=== PATIENT | female | born 1985 | race Caucasian/White ===

== ENCOUNTER 2023-07-11 13:33 | Emergency (ER) | payer OTHER, SELFPAY ==
[2023-07-11 13:39] VITALS: BP 118/89
[2023-07-11 13:57] LABS: % Basophils 0.3 % (0-2); % Immature Granulocytes 0.3 % (0-0.5); % Lymphocytes 19.3 % (20.5-51.1); % Monocytes 7.8 % (1.7-9.3); % Neutrophils 70.3 % (42.2-75.2); Absolute Eosinophils 0.1 10^3/uL (0-0.7); Absolute Lymphocytes 1.1 10^3/uL (1.2-3.4); Absolute Monocytes 0.5 10^3/uL (0.1-0.6); Absolute Neutrophils 4.1 10^3/uL (1.4-6.5); Hematocrit 41.7 % (37.0-47.0); Hemoglobin 14.9 g/dL (12.0-16.0); Mean Corp Hgb Conc. 35.7 g/dL (33.0-37.0); Mean Corpuscular Hgb 31.1 pg (27.0-31.0); Mean Corpuscular Volume 87.1 fL (81.0-99.0); Mean Platelet Volume 8.5 fL (7.4-10.4); Nucleated Red Blood Cells % 0 %; Platelet Count 306 10^3/uL (130-400); Red Blood Cell Count 4.79 10^6/uL (4.20-5.40); Red Cell Dist. Width 12.4 % (11.5-14.5); White Blood Cell Count 5.9 10^3/uL (4.8-10.8)
[2023-07-11 14:10] LABS: Lactic Acid 0.7 mmol/L (0.7-2.0)
[2023-07-11 14:13] LABS: ALT (SGPT) 295 U/L (0-35); AST (SGOT) 210 U/L (14-36); Albumin 3.9 g/dl (3.5-5.0); Alkaline Phosphatase 122 U/L (38-126); Blood Urea Nitrogen 12 mg/dl (7-17); Calcium 9.1 mg/dl (8.4-10.2); Carbon Dioxide 22 mmol/L (22-30); Chloride 109 mmol/L (98-107); Glucose 86 mg/dl (70-99); Potassium 4.2 mmol/L (3.5-5.1); Sodium 138 mmol/L (135-145); Total Bilirubin 0.8 mg/dl (0.2-1.3); Total Protein 7.5 g/dl (6.3-8.2); eGFR > 60.00
[2023-07-11 14:20] LABS: HCG, Serum Qualitative Screen Negative; Monotest Negative (Negative)
--- NOTE | 2023-07-11 17:22 | ED.GENMED ---
History of Present Illness
<Mattie Casey PA-C - Last Filed: 07/11/23 21:54>
General
Chief Complaint: Throat Problem
Source: patient
Exam Limitations: none
Time Seen by Provider: 07/11/23 16:52
Nursing documentation reviewed up to this point in time: agreed with
Travel History
Have you had any contact with someone who has COVID-19?: No
Do you have any symptoms of coronavirus? Fever > 100 degrees, chills, cough, shortness of breath, sore throat, loss of taste or smell, muscle aches, or headache?: No
History of Present Illness
History of Present Illness:
Patient is a 38 year old female presenting to the emergency department for evaluation of throat pain. Patient reports symptoms started on Sunday night with fatigue, body aches, and a sore throat. Symptoms have persisted and throat pain has become
increasingly more severe on right side. She also endorses intermitted subjective fevers but has been taking Motrin [id number]. Throat pain has been gradually worsening and she endorses pain up into her right ear. She was seen by primary care
on Sunday�who performed a rapid strep test in office. Rapid strep test negative throat culture that send was negative as well. She was started on a course of Augmentin for suspected tonsillar cellulitis. She has now had 4 doses and endorses no
improvement. She spoke with her primary care who was unable to get her into ENT. She recommended evaluation emergency department to rule out abscess.
Past History
<Mattie Casey PA-C - Last Filed: 07/11/23 21:54>
Past History
ED Past Medical History: Hypothyroidism, Psychiatric (Anxiety, Depression) and Other (PCOS, Sleep apnea)
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
Social History
Tobacco: Non-smoker
Alcohol: Occasional
Drug: None
Personal: Single
Living: with family
Employment: Employed
Family History
Family History: Other (Noncontributory)
Phy Exam
<Mattie Casey PA-C - Last Filed: 07/11/23 21:54>
Physical Exam
Physical Exam:
General: In mild distress due to pain and non-toxic
Vitals: Vital signs stable, afebrile
HEENT: Atraumatic, normocephalic; pupils equal round reactive light bilaterally, extraocular muscles intact; TMs clear with visible landmarks bilaterally, erythema posterior pharynx with tonsillar edema bilaterally right greater than left with
exudates, no obvious abscess, uvula midline, airway patent
Neck: appears supple, no meningeal signs, lymphadenopathy
CV: Regular rate and rhythm, heart sounds normal, no evidence of cyanosis
Resp: No evidence of respiratory distress, lungs clear no accessory muscle use
Abd: Soft, nontender in all 4 quadrants, negative Reyes sign, no palpable hepatosplenomegaly
Extremities: No deformities, no evidence of cyanosis or edema
Neuro: alert and oriented to person place time, speech normal, no focal motor deficits, no new focal neurologic deficits
Psych: Normal affect
Skin: Intact, no rashes
Course
<Mattie Casey PA-C - Last Filed: 07/11/23 21:54>
Orders/Labs/Results
Orders:
Orders
07/11/23 13:42
Test Result ONCE
07/11/23 13:48
Complete Blood Count/With Diff Urgent
Comprehensive Metabolic Panel Urgent
HCG, Serum Qualitative Screen Urgent
Lactic Acid Q4H
Comment: ON ICE, CANCEL 2ND ORDER IF FIRST LACTIC ACID LEVEL <2
Monotest Urgent
Blood Culture Q30M
ARLET Source: Blood/Venous
Specimen Description:
Comment: FROM 2 SEPARATE SITES
07/11/23 17:37
CT Neck With Iv Contrast Urgent
Comment:
Reason For Exam: Right tonsillar edema, r/o abscess
07/11/23 18:13
Blood Culture Q30M
ARLET Source: Blood/Venous
Specimen Description:
Comment: FROM 2 SEPARATE SITES
07/11/23 18:20
Ibuprofen [Motrin] 400 mg PO NOW STA
Abnormal Lab Results
07/11/23
13:48
MCH 31.1 H pg
(27.0-31.0)
Absolute Lymphs (auto) 1.1 L 10^3/uL
(1.2-3.4)
Lymphocytes % 19.3 L %
(20.5-51.1)
Chloride 109 H mmol/L
(98-107)
AST 210 H U/L
(14-36)
ALT 295 H U/L
(0-35)
07/11/23 13:48
07/11/23 13:48
Vital Signs
Initial and Last Documented VS:
Initial Vital Signs
Temp Pulse Resp BP Pulse Ox
98.3 F 87 17 118/89 99
07/11/23 13:39 07/11/23 13:39 07/11/23 13:39 07/11/23 13:39 07/11/23 13:39
Last Documented Vital Signs
Temp Pulse Resp BP Pulse Ox
98.3 F 70 18 115/70 100
07/11/23 13:39 07/11/23 21:05 07/11/23 21:05 07/11/23 21:05 07/11/23 21:05
<Mary De La Torre MD - Last Filed: 07/11/23 17:43>
Orders/Labs/Results
Orders:
Orders
07/11/23 13:42
Test Result ONCE
07/11/23 13:48
Complete Blood Count/With Diff Urgent
Comprehensive Metabolic Panel Urgent
HCG, Serum Qualitative Screen Urgent
Lactic Acid Q4H
Comment: ON ICE, CANCEL 2ND ORDER IF FIRST LACTIC ACID LEVEL <2
Monotest Urgent
Blood Culture Q30M
ARLET Source: Blood/Venous
Specimen Description:
Comment: FROM 2 SEPARATE SITES
07/11/23 17:37
CT Neck With Iv Contrast Urgent
Comment:
Reason For Exam: Right tonsillar edema, r/o abscess
07/11/23 18:13
Blood Culture Q30M
ARLET Source: Blood/Venous
Specimen Description:
Comment: FROM 2 SEPARATE SITES
07/11/23 18:20
Ibuprofen [Motrin] 400 mg PO NOW STA
Abnormal Lab Results
07/11/23
13:48
MCH 31.1 H pg
(27.0-31.0)
Absolute Lymphs (auto) 1.1 L 10^3/uL
(1.2-3.4)
Lymphocytes % 19.3 L %
(20.5-51.1)
Chloride 109 H mmol/L
(98-107)
AST 210 H U/L
(14-36)
ALT 295 H U/L
(0-35)
07/11/23 13:48
07/11/23 13:48
Vital Signs
Initial and Last Documented VS:
Initial Vital Signs
Temp Pulse Resp BP Pulse Ox
98.3 F 87 17 118/89 99
07/11/23 13:39 07/11/23 13:39 07/11/23 13:39 07/11/23 13:39 07/11/23 13:39
Last Documented Vital Signs
Temp Pulse Resp BP Pulse Ox
98.3 F 70 18 115/70 100
07/11/23 13:39 07/11/23 21:05 07/11/23 21:05 07/11/23 21:05 07/11/23 21:05
<Mattie Casey PA-C - Last Filed: 07/11/23 21:54>
MDM/Problems Addressed
Differential Diagnosis Includes:
Viral pharyngitis, tonsillar cellulitis, peritonsillar abscess, group A strep pharyngitis, mononucleosis, Ian angina, mastoiditis
MDM/Problems Addressed:
Patient is a 38-year-old female presenting for evaluation of right throat pain associated with viral URI symptoms. Symptoms started on Sunday and progressively worsened. She was seen by PCP on Sunday where she had a negative rapid strep test and
negative throat culture. She was started on Augmentin for suspected tonsillar cellulitis. She has had 4 doses and symptoms have not improved�spoke to PCP recommended eval in ER for peritonsillar abscess. She denies rigors, chest pain, shortness
of breath. She is swallowing food and liquids without difficulty�does cause him pain. Patient is hemodynamic stable, afebrile on arrival. In mild distress due to pain. Physical exam as document above. She does have significant erythema and
edema of tonsils bilaterally right greater than left. There is presence of exudates but no obvious abscess, uvula is midline. Airway is patent. Benign abdomen exam.
CBC without any clinically significant abnormalities. CMP shows transaminitis�significantly increased since September 2022. test negative. Monoscreen negative.
Although no abscess identified on physical exam�will get CT of neck to ensure no abscess. Will reassess
CT shows asymmetric enlargement of right tonsil and tiny focal hypodensity localized swelling versus possible early abscess. Discussed with ENT. They will see her in office in the next few days.
Patient has remained stable emergency department, nontoxic-appearing with no signs of meningitis. She is safe for discharge with close return precautions, prompt ENT follow-up. Will send prednisone for 4 days. She should continue Augmentin as
prescribed by PCP.
Discussed with patient to have liver enzymes rechecked by PCP within the next month. Patient comfortable to plan. All questions answered
Chronic conditions affecting care:
N/A
Acute Exacerbation and/or Progression of Chronic Illness:
Acute tonsillitis
<Mattie Casey PA-C - Last Filed: 07/11/23 21:54>
*Radiology
Radiology exam reviewed: radiology read reviewed
*Pulse Oximetry
Patient hypoxic: no
*Package Maker Interpretation
Rate: Package Maker- N/A
*Critical Care Note
Total Time (30-74mins, 75-104mins- exclusive of procedures): Not Applicable
ED Attending Note
<Mattie Casey PA-C - Last Filed: 07/11/23 21:54>
-
Portions of this chart may have been created with voice recognition software.� Occasional wrong word or��sound alike� substitutions may have occurred due to the inherent limitations of voice recognition software.
<Mary De La Torre MD - Last Filed: 07/11/23 17:43>
ED Attending Note
Patient seen and examined by attending physician: Yes
I performed the substantive portion of visit, reviewed & personally made and approve the management plan that is documented in note by myself or MACKENZIE.: Yes
ED Attending Note:
Patient appears nontoxic and in there is no meningismus. Her tonsils are symmetric appearing, however due to her significantly increased pain on the right, we will do a CAT scan to assess for right peritonsillar abscess. She is breathing
comfortably and lungs are clear. Patient has taken 3 doses of Augmentin. We will consider treating with steroids.
Discharge Plan
Departure
Patient Disposition: Home (Routine Discharge)
Date of Disposition: 07/11/23
Time of Disposition: 20:59
Patient with high blood pressure during this ER visit?: Yes
Condition: Good
Discharge Problem:
Acute tonsillitis, unspecified
Instructions: Sore Throat, Adult (DC), Peritonsillar Abscess, Adult (DC), BLOOD PRESSURE
Prescriptions:
New
prednisone 20 mg tablet
20 mg PO DAILY 4 Days Qty: 4 0RF
No Action
ofloxacin [Ocuflox] 0.3 % drops
1 drp ophthalmic (eye) QID Qty: 5 0RF
Rx Instructions:
1 drop both eyes every 6 hours
Referrals:
Tram Clark MD [Family Provider] -
Lillie Wall MD [Active] - Call in 1-3 days for appt
Activity Restrictions/Additional Instructions:
- Return to the emergency department with any high fevers, difficulty breathing, difficulty swallowing, intractable vomiting, severe pain, worsening current symptoms, or any other concern
-As discussed�you should follow-up with ENT in the next few days. Continue to take your Augmentin as prescribed by your PCP. A prescription for a steroid has been sent to your pharmacy. You can continue to take ibuprofen as needed for pain
-Stay well-hydrated.
-As discussed your liver function tests were elevated today in the emergency department. These should be rechecked with your primary care doctor in the next few weeks.
Interventions
Interventions:
*Risk Screen - Suicide Last Done: 07/11/23 17:37
*General Assessment Last Done: 07/11/23 18:35
*Neglect/Abuse Screening Last Done: 07/11/23 17:37
ED- Fall Risk Assessment Last Done: 07/11/23 17:35
*ED COVID-19 Vaccine History Last Done: 07/11/23 13:41
*Nursing Disposition Last Done: 07/11/23 21:17
ED-EENT Assessment Last Done: 07/11/23 17:35
ED- Pulmonary Assessment Last Done: 07/11/23 17:35
Discharge Date and Time
Discharge Date/Time: 07/11/23 21:18
[2023-07-11] MEDS: MOTRIN 400 MG PO (18:32)
[2023-07-11 18:34] VITALS: BMI 32.0
[2023-07-11 19:35] VITALS: BP 125/73
[2023-07-11 21:05] VITALS: BP 115/70
== END 2023-07-11 21:18 | disposition home or self-care (01) ==
LOC: EMR 13:33
PROVIDERS: EMERGENCY PHYSICIAN Emergency Medicine; FAMILY PHYSICIAN Internal Medicine
DX: J03.90 Acute tonsillitis, unspecified (principal); R60.0 Localized edema; R53.83 Other fatigue; R03.0 Elevated blood-pressure reading, without diagnosis of hypertension; F41.9 Anxiety disorder, unspecified; F32.A Depression, unspecified; G47.30 Sleep apnea, unspecified; E03.9 Hypothyroidism, unspecified; E28.2 Polycystic ovarian syndrome; Z98.84 Bariatric surgery status
CPT/HCPCS: 99285; 70491; 80053; 83605; 84703; 85025; 86308; 87040; Q9967